=== PATIENT | male | born 1980 | race Caucasian/White ===

== ENCOUNTER 2019-09-20 14:54 | Emergency (ER) | payer SELFPAY ==
[~2019-09-20] VITALS: Ht 179.1 cm; Wt 66.5 kg
[2019-09-20] MEDS ORDERED: ONDANSETRON PF 4 MG/2 ML VIAL. IV ONE (15:15)
--- NOTE | 2019-09-20 16:19 | PHYS DOC ---
Past History Past Medical History: Anxiety, Bipolar, Other Additional Past Medical Histor: restless leg Past Surgical History: Other Additional Past Surgical Histo: arm fx repair Alcohol Use: Sober Additional Alcohol Information: 1 glass of liquior nightly General Adult EDM: Chief Complaint: TESTICULAR PAIN OR INJURY HPI: HPI: Patient is a 38-year-old male who presents with a one-week history of left testicular pain. He denies any dysuria. He states it has been hurting off and on for the last week last night it was severe but he was able to get to sleep. This morning when he woke up the pain had intensified and continued to worsen throughout the morning and into the early afternoon. He denies any trauma to the area. He states he has not noticed any redness to the area. He has not had any urethral discharge. [] Review of Systems: Review of Systems: Constitutional: Denies fever or chills Eyes: Denies change in visual acuity HENT: Denies nasal congestion or sore throat Respiratory: Denies cough or shortness of breath Cardiovascular: Denies chest pain or edema GI: Denies abdominal pain, nausea, vomiting, bloody stools or diarrhea : Per HPI Musculoskeletal: Denies back pain or joint pain Integument: Denies rash Neurologic: Denies headache, focal weakness or sensory changes Endocrine: Denies polyuria or polydipsia Lymphatic: Denies swollen glands Psychiatric: Denies depression or anxiety Heart Score: Risk Factors: Risk Factors: DM, Current or recent (<one month) smoker, HTN, HLP, family history of CAD, obesity. Risk Scores: Score 0 - 3: 2.5% MACE over next 6 weeks - Discharge Home Score 4 - 6: 20.3% MACE over next 6 weeks - Admit for Clinical Observation Score 7 - 10: 72.7% MACE over next 6 weeks - Early Invasive Strategies Current Medications: Current Meds: Current Medications Medications (Trade) Dose Ordered Sig/Cherri Start Time Stop Time Status Last Admin Dose Admin Fentanyl Citrate (Fentanyl 2ml Vial) 50 mcg 1X ONCE 09/20/19 15:15 09/20/19 15:16 DC 09/20/19 15:23 50 MCG Ondansetron HCl (Zofran) 4 mg 1X ONCE 09/20/19 15:15 09/20/19 15:16 DC 09/20/19 15:22 4 MG Allergies: Allergies: Allergies Coded Allergies Type Severity Reaction Last Updated Verified No Known Drug Allergies 09/20/19 No Physical Exam: PE: Constitutional: Well developed, well nourished, moderate distress, non-toxic appearance. [] HENT: Normocephalic, atraumatic, bilateral external ears normal, oropharynx moist, no oral exudates, nose normal. [] Eyes: PERRLA, EOMI, conjunctiva normal, no discharge. [] Neck: Normal range of motion, no tenderness, supple, no stridor. [] Cardiovascular:Heart rate regular rhythm, no murmur [] Lungs & Thorax: Bilateral breath sounds clear to auscultation [] Abdomen: Bowel sounds normal, soft, no tenderness, no masses, no pulsatile mass es. [] : Left testicle is tender to palp there is no erythema I do not appreciate any urethral drainage Skin: Warm, dry, no erythema, no rash. [] Back: No tenderness, no CVA tenderness. [] Extremities: No tenderness, no cyanosis, no clubbing, ROM intact, no edema. [] Neurologic: Alert and oriented X 3, normal motor function, normal sensory function, no focal deficits noted. [] Psychologic: Affect normal, judgement normal, mood normal. [] Current Patient Data: Vital Signs: Vital Signs Date Time Temp Pulse Resp B/P (MAP) Pulse Ox O2 Delivery O2 Flow Rate FiO2 09/20/19 15:23 18 100 Room Air 09/20/19 15:03 98.5 91 115/76 (89) EKG: EKG: [] Radiology/Procedures: Radiology/Procedures: [] Course & Med Decision Making: Course & Med Decision Making Pertinent Labs and Imaging studies reviewed. (See chart for details) [] Dragon Disclaimer: Dragon Disclaimer: This electronic medical record was generated, in whole or in part, using a voice recognition dictation system. Departure Departure: Impression: Primary Impression: Epididymitis Disposition: 01 HOME, SELF-CARE Condition: STABLE Referrals: PCP,NO (PCP) Patient Instructions: Epididymitis Scripts Hydrocodone Bit/Acetaminophen (NORCO 5-325 TABLET) 1 Each Tablet 1 TAB PO Q4-6HRS for PAIN, #15 TAB Prov: DUDLEY MENDEZ DO 09/20/19 Levofloxacin (LEVAQUIN) 500 Mg Tablet 500 MG PO QD for UTI, #9 TAB-CAP Prov: DUDLEY MENDEZ DO 09/20/19 DUDLEY MENDEZ DO Sep 20, 2019 16:19
[2019-09-20] MEDS ORDERED: levoFLOXacin 500 MG TABLET PO ONE (16:30)
--- NOTE | 2019-09-20 16:41 | RAD ---
Exam: Ultrasound scrotum Indication: Left testicular pain Technique: Real-time grayscale and color Doppler images of the scrotum were obtained by the department utilities manager. Comparisons: None FINDINGS: Right testicle measures 5.0 x 3.3 x 2.5 cm. Left testicle measures 4.9 x 3.5 x 2.7 cm. Vascular flow identified within the testicles bilaterally. There is a mildly complex left hydrocele.. Several left-sided epididymal cysts are also noted. IMPRESSION: 1. Moderate-sized mildly complex left hydrocele. 2. No evidence for testicular torsion. Electronically signed by: Hoang Thornton MD (09/20/2019 4:38 PM) [id number]
[2019-09-20 16:45] VITALS: BP 113/66
[2019-09-20] MEDS ORDERED: HYDR-3165 PO (16:48)
[2019-09-20] MEDS ORDERED: LEVO500T59 PO (16:48)
== END 2019-09-20 17:24 | disposition home or self-care (01) ==
LOC: ER 14:54
DX: N45.1 Epididymitis (principal)
CPT/HCPCS: 76870; 96374; 96375; 96376; 99284; J2405; J3010